=== PATIENT | male | born 1960 | race Caucasian/White ===

== ENCOUNTER → 2017-05-23 | Day surgery (SDC) | payer OTHER ==
[~2017-05-23] MED LIST: ACETAMINOPHEN 1000 MG/100 ML 100 ML IV ONE; BUPIVACAINE/EPINEPHRINE 0.5% PF 10 ML VIAL ONE; LACTATED RINGER'S 1000 ML INJ 1,000 ML ONE; MIDAZOLAM HCL 2 MG/2 ML VIAL ONE; ONDANSETRON HCL 4 MG/2 ML VIAL IV PUSH ONE; PROPOFOL 200 MG/20 ML AMP IV ONE
--- NOTE | 2017-05-23 08:58 | TN ---
cc: TA ESCALANTE M.D. DATE OF SURGERY: 05/23/2017 PREOPERATIVE DIAGNOSIS Left scapular mass. POSTOPERATIVE DIAGNOSIS Left intramuscular scapular mass, 3 cm. PROCEDURE Excision of lipomatous-appearing intramuscular left scapular mass measuring 3 cm, double-layer closure. ANESTHESIA LMA. SURGEON Dr. Escalante. INDICATION This is a pleasant 56-year-old gentleman who has a growing mass in his left scapular area that is quite bothersome to him. Plans were made for excision. DETAILS OF PROCEDURE The patient was taken to the operating room and placed in the supine position. After anesthesia he is placed in a right lateral decubitus position. The area had been previously marked. He is prepped and draped with Betadine. We make a horizontal incision overlying the apex of the mass after anesthetizing with Marcaine solution. We dissect down to the deep subcutaneous tissue. This mass is somewhat in the fibers of the scapularis muscle which is teased out from around the surrounding tissues. The mass measures approximately 3 cm. Electrocautery is used to obtain hemostasis. We then close the deep layer with 3-0 Vicryl and the skin is closed with 4-0 Vicryl after the mass is completely removed. Steri-Strips are applied. Sterile bandage applied. The patient tolerated the procedure well and had no immediate post-op complication. Ta Escalante MD JDB/DRAGAN /8:47 AM /8:52 AM
== END | disposition home or self-care (01) ==
LOC: ESDC 06:54
PROVIDERS: ATTEND Surgery
DX: R22.2 Localized swelling, mass and lump, trunk (principal)
CPT/HCPCS: 00300; 21932; 88304; J0131; J2250; J2405; J3010; J7120; 88305